=== PATIENT | female | born 1995 | race Caucasian/White ===

== ENCOUNTER → 2022-06-03 | Outpatient (CLI) | payer SELFPAY ==
[2022-06-03 14:54] LABS: Absolute Lymphocyte Count 2.51 X10^3/uL (0.83-4.51); Absolute Neutrophil Count 6.1 X10^3/uL (2.0-7.7); Basophil# 0.02 X10^3/uL; Basophil% 0.2 % (0-1); Eosinophil# 0.05 X10^3/uL; Eosinophils% 0.5 % (0-5); Hematocrit 35.9 % (37-47); Hemoglobin 12.8 g/dL (12.0-15.0); Lymphocyte # 2.51 X10^3/ul (0.83-4.51); Lymphocyte % 26.9 % (19-41); Mean Corp Hgb Conc 35.7 g/dL (32-36); Mean Corpuscular Hgb 30.5 pg (27.0-32.0); Mean Corpuscular Volume 85.7 fL (81-99); Mean Platelet Vol. 8.8 fl (6.2-12.0); Monocyte# 0.65 X10^3/uL; NRBC Flagged by Analyzer 0 % (0-5); Neutrophil # 6.07 X10^3/uL (2.7-7.7); Neutrophil % 65.1 % (47-70); Platelet Count 296 K/mm3 (150-450); RBC Distribution Width CV 13.7 % (11.6-14.6); RBC Distribution Width SD 42.6 fl (35.1-43.9); Red Blood Count 4.19 M/mm3 (4.2-5.4); White Blood Count 9.3 K/mm3 (4.4-11.0)
[2022-06-03 15:38] LABS: Rubella IgG Reactive (Nonreactive)
[2022-06-11 18:03] LABS: HPV Reflexed? NOT INDICATED
== END | disposition home or self-care (01) ==
LOC: PAVLAB 06-04 07:00 → LABSPEC 06-04 07:00 → PAVLAB 06-04 07:28
PROVIDERS: PCP Physician Assistant; Referring Provider Obstetrics & Gynecology; Visit Provider Obstetrics & Gynecology
DX: Z34.90 Encounter for supervision of normal pregnancy, unspecified, unspecified trimester (principal)
CPT/HCPCS: 36415; 85025; 86762; 86850; 86900; 86901; 87086; 87088; 88175; G0145

== ENCOUNTER → 2022-08-02 | Outpatient (CLI) | payer SELFPAY ==
--- NOTE | 2022-08-02 08:18 | US_ITS ---
STUDY: SECOND AND THIRD TRIMESTER OBSTETRICAL ULTRASOUND REASON FOR EXAM: Female, 27 years old anatomy LMP: 03/10/2022. TECHNIQUE: Transabdominal and Transvaginal TECHNICAL QUALITY: Adequate. PRIOR ULTRASOUND: None. FINDINGS: There is a single intrauterine fetus. The fetus is in a cephalic presentation. There is demonstrated cardiac activity with a heart rate of 138 bpm. There is a normal amniotic fluid volume. The largest amniotic fluid pocket measures 5.4 cm. The amniotic fluid index (ABBIE) is within normal limits. The placenta is posterior and fundal in location and is not low lying. There are Grade 0 placental changes. The cervix measures 4.1 cm in length. The bilateral adnexal regions are normal. BIOMETRY: BPD: 5.04 cm: 21 weeks, 2 days HC: 18.58 cm: 20 weeks, 6 days AC: 17.1 cm: 22 weeks, 1 days FL: 3.42 cm: 20 weeks, 5 days CI: 77% FL/BPD: 68% FL/HC: FL/AC: 20% HC/AC: 1.09 age by current US: 21 weeks, 1 days. JACQUELIN by current US: 12/12/2022. Estimated weight: 428 grams, +/- 64 grams, 83 %. Age by LMP: 20 weeks, 5 days. JACQUELIN by LMP: 12/15/2022. ANATOMY: Gender: Male Cranium: Normal lateral ventricles. Normal choroid plexus. Normal cerebellum. Normal cisterna magna. Normal face, nose and lips. Chest: Normal 4-chamber heart. Abdomen/Pelvis: Normal diaphragm. Normal stomach. Normal abdominal wall. Normal cord insertion. Normal 3 vessel cord. Normal kidneys. Normal bladder. Spine: Normal cervical spine. Normal thoracic spine. Normal lumbar spine. Normal sacrum. Extremities: Normal bilateral upper extremities. Normal bilateral lower extremities. US/OB Anatomy Scan IMPRESSION: Single live uterine gestation with a mean gestational age of 21 weeks and 1 day. Electronically Signed: Chidi Hough MD at 14:41 EST ,
== END | disposition home or self-care (01) ==
LOC: OPUS 08:16
PROVIDERS: PCP Physician Assistant; Referring Provider Obstetrics & Gynecology; Visit Provider Obstetrics & Gynecology
DX: Z87.51 Personal history of pre-term labor (principal); Z3A.21 21 weeks gestation of pregnancy; Z36.9 Encounter for antenatal screening, unspecified; O09.90 Supervision of high risk pregnancy, unspecified, unspecified trimester
CPT/HCPCS: 76805; 76817

== ENCOUNTER → 2022-09-23 | Outpatient (CLI) | payer SELFPAY ==
[2022-09-23 09:54] LABS: Absolute Lymphocyte Count 1.58 X10^3/uL (0.83-4.51); Basophil# 0.03 X10^3/uL; Basophil% 0.3 % (0-1); Eosinophils% 0.9 % (0-5); Hematocrit 33.8 % (37-47); Hemoglobin 11.9 g/dL (12.0-15.0); Lymphocyte # 1.58 X10^3/ul (0.83-4.51); Lymphocyte % 14.8 % (19-41); Mean Corp Hgb Conc 35.2 g/dL (32-36); Mean Corpuscular Hgb 30.7 pg (27.0-32.0); Mean Corpuscular Volume 87.1 fL (81-99); Mean Platelet Vol. 8.9 fl (6.2-12.0); Monocyte# 0.73 X10^3/uL; Monocyte% 6.8 % (0-10); NRBC Flagged by Analyzer 0 % (0-5); Neutrophil # 8.01 X10^3/uL (2.7-7.7); Neutrophil % 74.9 % (47-70); Platelet Count 249 K/mm3 (150-450); RBC Distribution Width CV 13.7 % (11.6-14.6); RBC Distribution Width SD 43.1 fl (35.1-43.9); Red Blood Count 3.88 M/mm3 (4.2-5.4); White Blood Count 10.7 K/mm3 (4.4-11.0)
[2022-09-23 10:12] LABS: Glucose Challenge Gest 1H 50g 119 mg/dL (70-140)
[2022-09-23 10:46] LABS: HIV - WCH Non-Reactive (Nonreactive); Syphilis Antibodies Non-reactive
== END | disposition home or self-care (01) ==
PROVIDERS: PCP Physician Assistant; Referring Provider Obstetrics & Gynecology; Visit Provider Obstetrics & Gynecology
DX: Z34.92 Encounter for supervision of normal pregnancy, unspecified, second trimester (principal); Z3A.20 20 weeks gestation of pregnancy
CPT/HCPCS: 36415; 82950; 85025; 86703; 86780; 86900; 86901

== ENCOUNTER → 2022-11-19 | Outpatient (CLI) | payer OTHER, SELFPAY ==
[2022-11-19 12:21] LABS: Hepatitis B Surface Antigen Non-Reactive (Nonreactive); Hepatitis C Antibody Non-Reactive (Nonreactive)
[2022-11-20 22:06] LABS: Chlamydia By Nucleic Acid AMP Negative (Negative)
[2022-11-21 14:20] LABS: Gonococcus By Nucleic Acid AMP Negative (Negative)
== END | disposition home or self-care (01) ==
PROVIDERS: PCP Physician Assistant; Referring Provider Nurse Practitioner Women's Health; Visit Provider Nurse Practitioner Women's Health
DX: Z34.90 Encounter for supervision of normal pregnancy, unspecified, unspecified trimester (principal)
CPT/HCPCS: 36415; 86803; 87081; 87340; 87491; 87591

== ENCOUNTER 2022-11-30 01:40 | Inpatient (IN) | payer SELFPAY, OTHER ==
[2022-11-30] VITALS (26 sets, daily range): BP systolic 97–125; BP diastolic 52–72; PULSE 67–91; RESP 16–18; TEMP 36.2–37.3; O2SAT 98; BMI 31.0
[2022-11-30 01:38] LABS: ROM Internal Control Test YES-OK TO RESULT pt. (Internal QC); ROM Patient Test POSITIVE (Negative)
[2022-11-30] MEDS: LACTATED RINGERS 500 ML 999 ML IV (01:55)
[2022-11-30 02:00] LABS: Absolute Lymphocyte Count 2.29 X10^3/uL (0.83-4.51); Absolute Neutrophil Count 9.5 X10^3/uL (2.0-7.7); Basophil# 0.08 X10^3/uL; Basophil% 0.6 % (0-1); Eosinophil# 0.12 X10^3/uL; Eosinophils% 0.9 % (0-5); Hematocrit 35.4 % (37-47); Hemoglobin 12.1 g/dL (12.0-15.0); Lymphocyte # 2.29 X10^3/ul (0.83-4.51); Lymphocyte % 17.2 % (19-41); Mean Corp Hgb Conc 34.2 g/dL (32-36); Mean Corpuscular Hgb 30.6 pg (27.0-32.0); Mean Corpuscular Volume 89.6 fL (81-99); Mean Platelet Vol. 9.3 fl (6.2-12.0); Monocyte# 0.98 X10^3/uL; Monocyte% 7.4 % (0-10); NRBC Flagged by Analyzer 0 % (0-5); Neutrophil # 9.45 X10^3/uL (2.7-7.7); Neutrophil % 71.1 % (47-70); Platelet Count 247 K/mm3 (150-450); RBC Distribution Width CV 13.2 % (11.6-14.6); Red Blood Count 3.95 M/mm3 (4.2-5.4); White Blood Count 13.3 K/mm3 (4.4-11.0)
[2022-11-30] MEDS: Lactated Ringers 1,000 ML 50 ML IV (02:27)
[2022-11-30 03:46] LABS: Syphilis Antibodies Non-reactive
--- NOTE | 2022-11-30 04:34 | HP.PCM.OB_ITS ---
HPI - General General Date of Admission: 11/30/22 HPI Narrative HARDEEP HOYOS, is a 27 y/i @ 37 weeks 6 days who presents to L&D with rupture of membranes at 11:30 pm on 11/29/22. She has a history of section with her last baby due to a breech presentation. Her first was a 34 week vaginal delivery at [place] for labor. 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 Her chance of a successful vaginal delivery based on the calculator is 78.8% of success. A consent form was signed after discussing the risks vs benefits of vs elective repeat section. Maternal Data Information JACQUELIN Calculator Estimated Delivery Date Method Current WG Current Estimate 12/15/22 LMP (Certain) 37w 6d PFSH [facility] Medical History (Updated 11/30/22 @ 01:56 by Ludy Paz) Family history of recurrent miscarriage Family history of stillbirth History of blood transfusion History of pre-term labor History of premature rupture of membranes (PPROM) depression Home Medications multivitamin no.47-iron fum 27 mg-folate no.1 1 mg-dha 300 mg capsule (PNV-DHA) 1 cap PO DAILY 05/23/22 [History Last Taken 11/29/22 17:00] Allergy/AdvReac Type Severity Reaction Status Date / Time No Known Allergies Allergy Verified 11/30/22 01:27 Family History Grandmother Breast cancer Aunt Breast cancer Ovarian cancer Surgical History (Updated 11/30/22 @ 01:56 by Ludy Paz) Hx of LASIK Previous section Social History adopted: No household members: spouse and children number of children: 2 current occupational status: unemployed pets and animals: No history of recent travel: No sexually active: Yes Smoking Status: Never smoker alcohol intake: never substance use type: does not use well-balanced diet: daily or most days caffeine: No eating out: rarely or never during the past year weight has: remained stable what type of physical activity do you participate in: none niyah/anglican: Protestant seatbelt use: sometimes do you feel safe at home: Yes additional social history: [place]- [place] History 6 Elective abortions Hx Para 2 Spontaneous abortions 3 Hx # Term Pregnancies Ectopic pregnancies Hx # Pregnancies Multiple births # of living children 2 Past Pregnancies Del. Date Name GA/Weeks Outcome Route Bth Weight Gen Labor Lgth Anesthesia Del Locatn Provider FOB 07/18/17 miscarriage at 8 weeks 10/16/17 miscarriage 7 weeks 04/08/19 Gustavo 34 live - 5#12oz Male 13 hours epidural Matt Jaylyn Cindy 10/13/20 Dania 39 live - full term 7#12oz Female spinal [place] Mikael White 12/12/21 miscarriage 5 weeks Delivery Date: 04/08/19 Last Updated by: Celsa Domínguez MD PPROM, pitocin to keep process going Delivery Date: 10/13/20 Last Updated by: Darlene Correia breech Visit Details Expected Delivery Route/Plan TOLAC patient counseled regarding risks/benefits of trial of labor versus repeat . ACOG/uptodate education given to patient. [] % likelihood of success per calculator TOLAC consent form signed: [] Plans Covid status: [] Flu vaccine: [] Tdap vaccine: discussed and declines Rhogam: na LARC form signed: completed Problem list reviewed and updated with the most current plan of care details and appropriate orders placed. Relevant counseling for the gestational age provided. Continue routine care and follow up unless otherwise noted in visit notes/problem list details OB Flowsheet Initial Weight: Not Recorded Date -?-?-?-?-?-?-?-?-?-?-?-?- EGA Weight BP Urine Prot -?-?-?-?-?-?-?-?-?-?-?-?- Glucose FHR FuHt Pres Dilation -?-?-?-?-?-?-?-?-?-?-?-?- Effaced St Visit Note 06/03/22 -?-?-?-?-?-?-?-?-?-?-?-?- 12w 1d 157 lb 114/72 -?-?-?-?-?-?-?-?-?-?-?-?- 170 -?-?-?-?-?-?-?-?-?-?-?-?- SM- CRL 6 cm con s with LMP 08/02/22 -?-?-?-?-?-?-?-?-?-?-?-?- 20w 5d 167 lb 102/62 Negative -?-?-?-?-?-?-?-?-?-?-?-?- Negative 140 -?-?-?-?-?-?-?-?-?-?-?-?- SM- no vb crampi ng, nex tvisit with Hardeep in 4 weeks and fu with us in 8 weeks 09/23/22 -?-?-?-?-?-?-?-?-?-?-?-?- 28w 1d 178 lb 6 oz 109/69 Nega tive -?-?-?-?-?-?-?-?-?-?-?-?- Negative 135 28 -?-?-?-?-?-?-?-?-?-?-?-?- LC- no vb/ctx/lo f. good fm. normal 28 week labs. larc signed. will see hardeep in 2 weeks and us in 4 weeks. 10/23/22 -?-?-?-?-?-?-?-?-?-?-?-?- 32w 3d 184 lb 6 oz 99/66 Nega tive -?-?-?-?-?-?-?-?-?-?-?-?- Negative 125 32 Cephalic 0 -?-?-?-?-?-?-?-?-?-?-?-?- JV- pt complains of cramping but thinks that she could be over doing it at home. She denies lof, vaginal bleeding, or dec fm. cx closed today 11/19/22 -?-?-?-?-?-?-?-?-?-?-?-?- 36w 2d 189 lb 6 oz 108/62 Nega tive -?-?-?-?-?-?-?-?-?-?-?-?- Negative 131 36 Cephalic 0 -?-?-?-?-?-?-?-?-?-?-?-?- MH-no Vb,lof. Ir reg CTX. Good FM. GBs, GCC NST FHR Rate Baby A Variability:: Moderate Accelerations:: 15 x 15 Decelerations:: None FHR Category:: Category I Uterine Activity:: contractions q 3-5 minutes ROS Constitutional Constitutional: Denies change in weight, fatigue, fever(s), headache(s), poor appetite or weakness Eyes Eyes: Denies blurry vision, change in vision, seeing flashes or spots in vision ENT HEENT: Denies dizziness, headache(s), loss taste/smell or sore throat Cardiovascular Cardiovascular: Denies chest pain, dizziness, dyspnea, irregular heart rhythm, leg edema, palpitations, rapid heart rate or vomiting Respiratory/Chest Respiratory/Chest: Denies chest tightness, cough, dyspnea or breast pain Gastrointestinal Gastrointestinal: Denies abdominal pain, anorexia, constipation, cramping, diarrhea, hemorrhoids, vomiting or weight changes Genitourinary Genitourinary: Denies dysuria, flank pain, genital lesions, genital pain, urinary frequency or urinary urgency Musculoskeletal Musculoskeletal: Denies back pain, difficulty walking, joint pain, limited range of motion, muscle cramps or numbness Integumentary Integumentary: Denies lesions or unusual bruising Neurologic Neurologic: Denies abnormal movements, abnormal speech, dizziness, numbness, seizure-like activity or syncope Psychiatric Psychiatric: Denies anxiety, behavioral changes, change in appetite, change in libido, cognitive impairment, confusion, depression, difficulty concentrating, h allucinations or suicidal thoughts Endocrine Endocrinology: Denies excessive sweating, polydipsia or polyuria Hematologic/Lymphatic Hematologic/Lymphatic: Denies easy bleeding, easy bruising or lymphadenopathy Allergic/Immunologic Allergic/Immunologic: Denies itchy eyes, lip swelling, seasonal rhinorrhea, rhinitis, throat swelling, tongue swelling, eczemia, wheezing or asthma Vital Signs Vital Signs Vital Signs: 11/30/22 01:13 11/30/22 01:13 11/30/22 01:12 Temperature Temperature Source Pulse Rate 83 Blood Pressure 118/66 BP Systolic 118 BP Diastolic 66 Pulse Ox 98 11/30/22 01:12 11/30/22 01:12 11/30/22 02:37 Temperature 98.1 F Temperature Source Temporal Temporal Pulse Rate Blood Pressure BP Systolic BP Diastolic Pulse Ox 11/30/22 02:37 11/30/22 02:37 11/30/22 02:37 Temperature 98.3 F Temperature Source Pulse Rate 82 Blood Pressure 97/55 L BP Systolic 97 BP Diastolic 55 Pulse Ox 11/30/22 04:24 11/30/22 04:24 Temperature Temperature Source Pulse Rate 85 Blood Pressure 110/62 BP Systolic 110 BP Diastolic 62 Pulse Ox Weight Weight: 192 lb 3.889 oz Body Mass Index (BMI) 31.0 Physical Exam Const alert, oriented x3, no apparent distress and healthy appearing General Appearance: cooperative; Negative for anxious HEENT normocephalic Face and Sinus: normal facial exam Eyes EOMs intact bilaterally and no scleral icterus General Eye: normal appearance of both eyes Neck full ROM and supple Lymph Lymphatic: no lymphadenopathy noted Chest Chest: abnormal inspection of the chest Resp normal respiratory effort Effort and Inspection: able to speak in complete sentences Cardio regular rate GI soft to palpation and non-tender Inspection: gravid Palpation: soft; Negative for tender external exam normal Amniotic Fluid: ROM+plus Back/Spine no CVA tenderness Extremity normal to inspection, full ROM and no clubbing, cyanosis or edema General Extremity: Negative for calf tenderness or edema Skin Lesions: no lesions Rashes: no rashes Psych mental status grossly normal Labs Labs Labs: Blood Type O POSITIVE Antibody Screen NEGATIVE Hct 35.4 % (37-47) L Hgb 12.1 g/dL (12.0-15.0) Obstetrics US Syphilis Total Ab Non-reactive Rubella IgG Antibody Reactive (Nonreactive) Hep Bs Antigen Non-Reactive (Nonreactive) Chlamydia DNA (CHUCKIE) Negative (Negative) Neisseria gonorrhoeae DNA (CHUCKIE) Negative (Negative) HIV 1&2 Antibody Non-Reactive (Nonreactive) Glucose 1 Hr 50 gm 119 mg/dL (70-140) Assessment & Plan (1) History of miscarriage, currently : COMMENT: 3 miscarriages. 2017 @ 8 wks, 2018 @ 7 wks, 2020 @ 5 wks (2) Hx of section: COMMENT: dtr was breech(2020). cocare with [facility]eep [facility] . (3) : QUALIFIERS: Weeks of gestation: 32 weeks Qualified Code(s): Z3A.32 - 32 weeks gestation of COMMENT: Neg GBS. anatomy nl, discussed NIPT & Carrier testing (4) Supervision of high risk , antepartum: COMMENT: PRR(GCC, hep B/C pending), JACQUELIN 12/15/22, Dania Johnston Cindy (5) Hx of maternal blood transfusion, currently : COMMENT: with c section 2020 (6) History of delivery: COMMENT: discussed CL screening. term delivery last . PLAN: Plan Patient presents IAL, plan expectant management for , pitocin PRN if needed. Pain management: none . GBS negative . Management of any complications: prior section with a chance of successful vaginal being 75.8%. consent signed and patient aware of 1% chance of uterine rupture that could result in demise in the worst case scenario. currently she has made minimal change since arrival. She presented at 160/-2 and is now 1.5/80/-2. She is declining pitocin at this time. Will give her 2 more hours and recheck for cervical change I have reviewed the [facility] and made any clinically relevant updates.
[2022-11-30] MEDS: Ondansetron 4 MG/2 ML Vial IV ×2 (10:03→14:10)
[2022-11-30] MEDS: 0.9% Saline Lock 10 ML Syringe IV ×2 (10:03→14:10)
--- NOTE | 2022-11-30 10:05 | PCM.PN.BLA ---
Progress Note pt is in hands and knees on the floor. She is breathing through contractions. She was last examined at 6:20 and noted to have changed her cervix from 1 to 3 cm. current tracing: FHT: Moderate variability reactive no decelerations category I tracing [place]: irregular Contractions, not picking up all contractions as patient is on portable monitor cx: /-1 reviewed tracing abnormalities since last note: no changes, cat1 A/P: tolac - progressing well without intervention continue monitoring. no need for pitocin at this time. ' patient declines epidural placement or pain medication.
[2022-11-30] MEDS: Oxytocin 15 Units/NS 250ml 15 UNITS/250 ML IV.SOLN 2 UNITS IV (12:32)
--- NOTE | 2022-11-30 12:45 | PN_ITS ---
Progress Note pt is breathing through contractions still but admits that she thinks they are spacing out. She is ready to start pitocin now. current tracing: FHT: Moderate variability reactive no decelerations category I tracing [place]: q 5 min Contractions cx: 4.5/80/-1 reviewed tracing abnormalities since last note: no changes A/P: TOLAC -start pitocin now.
--- NOTE | 2022-11-30 14:51 | EX.PCM.OBRPT ---
Assessment & Plan (1) History of miscarriage, currently : COMMENT: 3 miscarriages. 2017 @ 8 wks, 2018 @ 7 wks, 2020 @ 5 wks (2) Hx of section: COMMENT: dtr was breech(2020). [facility]are with [facility] . (3) Supervision of high risk , antepartum: COMMENT: PRR(GCC, hep B/C pending), JACQUELIN 12/15/22, Dania Johnston Cindy (4) : QUALIFIERS: Weeks of gestation: 32 weeks Qualified Code(s): Z3A.32 - 32 weeks gestation of COMMENT: Neg GBS. anatomy nl, discussed NIPT & Carrier testing (5) Hx of maternal blood transfusion, currently : COMMENT: with c section 2020 (6) History of delivery: COMMENT: discussed CL screening. term delivery last . Maternal Data Information JACQUELIN Calculator Estimated Delivery Date Method Current WG Current Estimate 12/15/22 LMP (Certain) 37w 6d Final JACQUELIN: 12/15/22 Gestational age: 37 weeks 6 days Vaginal Delivery Operative Information Date of Procedure: 11/30/22 Pre-Operative Diagnosis: @ 37 weeks 6 days, history of prior section, desires TOLAC Post-Operative Diagnosis: @ 37 weeks 6 days, history of prior section, desires TOLAC Type of Anesthesia: None Estimated Blood Loss: 50ccc Findings Description of Procedure: Patient began pushing and delivered the head in the YESI presentation. The head was delivered atraumatically and a loose nuchal cord ?1 was identified and easily reduced over the 's head. The anterior and posterior shoulders delivered without complication followed by the rest of the infant and the was placed on the maternal abdomen. Delayed cord clamping was employed for approximately 60 seconds. Cord was clamped and cut and gentle traction was applied to the cord and the placenta delivered spontaneously immediately following it was noted to be intact with three-vessel cord. The perineum and vagina were inspected and noted to have a small 1st degree laceration, repaired with a 3-0 vicryl rapide. EBL was 50cc. Patient and tolerated delivery well. Presentation: Vertex Amniotic Membrane Rupture Type: Spontaneous Amniotic Fluid Description: Clear Placental Delivery Description: Spontaneous Placenta Disposition: [facility] Cord Vessel Description: 3 Vessels Cord Entanglement: Around neck x 1, loose A Gender: Male (1 minute): 8 (5 minute): 9 Delayed Cord Clamping: Yes Post Vaginal Delivery Medications Given After Delivery: IV Pitocin Episiotomy Description: None Laceration: 1st degree Complication Complications: None Multi Select Codes Urinary/Genital Urinary/Genital CPT Codes: 90866 Vaginal Delivery [facility]
[2022-11-30] MEDS: Oxytocin 15 Units/NS 250ml 15 UNITS/250 ML IV.SOLN 83 UNITS IV (15:10)
[2022-11-30] MEDS: Lidocaine 1% (20 ml mdv) 20 ML Vial INFILT (15:20)
[2022-11-30] MEDS: Naproxen 500 MG Tablet PO (17:59)
[2022-12-01] VITALS (9 sets, daily range): BP systolic 103–116; BP diastolic 51–59; PULSE 67–78; RESP 15–16; TEMP 36.2–37.2; O2SAT 97–98
[2022-12-01] MEDS: Naproxen 500 MG Tablet PO (07:57)
--- NOTE | 2022-12-01 09:47 | PCM.PN.OB ---
Subjective Subjective Patient doing well without complaints. Tolerating PO. Ambulating and voiding without difficulty. Feeding well. Denies chest pain, shortness of breath, calf pain/swelling, fevers, chills, lightheadedness. Patient desires discharge to home Objective Data Objective Data Vital Signs: Vital Signs Temp Pulse Resp BP Pulse Ox O2 Del Method 98.9 F 74 15 116/59 L 98 Room Air 12/01/22 07:58 12/01/22 07:58 12/01/22 07:58 12/01/22 07:58 12/01/22 07:58 12/01/22 07:58 Oxygen Delivery Method Room Air Weight: 192 lb 3.889 oz Body Mass Index (BMI) 31.0 Intake & Output: Intake and Output for Last 24 Hours 11/29/22 11/30/22 12/01/22 23:59 23:59 23:59 Intake Total 1894.13 / 1894.13 Output Total 2250 / 2250 Balance -355.87 / -355.87 Lab / Micro Data Result Diagrams: 11/30/22 01:45 ROS Constitutional Constitutional: Denies chills, fatigue, fever(s), poor appetite or weakness Eyes Eyes: Denies blurry vision, change in vision, seeing flashes or spots in vision ENT HEENT: Denies dizziness, headache(s), loss taste/smell or sore throat Cardiovascular Cardiovascular: Denies chest pain, dizziness, dyspnea, irregular heart rhythm, palpitations or rapid heart rate Respiratory/Chest Respiratory/Chest: Denies chest tightness, cough, dyspnea or breast pain Gastrointestinal Gastrointestinal: Denies abdominal pain, constipation or vomiting Genitourinary Genitourinary: Denies dysuria or flank pain Musculoskeletal Musculoskeletal: Denies difficulty walking, joint pain, limited range of motion or numbness Neurologic Neurologic: Denies abnormal movements, abnormal speech, dizziness, numbness, seizure-like activity or syncope Psychiatric Psychiatric: Denies anxiety, behavioral changes, change in appetite, confusion, depression or suicidal thoughts Physical Exam Const alert, oriented x3 and no apparent distress General Appearance: cooperative and comfortable Resp normal respiratory effort Cardio regular rate GI normal to inspection, nondistended, normoactive bowel sounds GI Narrative: uterus is firm below umbilicus Palpation: soft Back/Spine no CVA tenderness and thoraco-lumbar ROM normal Extremity normal to inspection, no clubbing, cyanosis or edema, no calf tenderness and no pedal edema Psych mental status grossly normal, thought process normal, cooperative, affect normal, speech normal, activity/motor behavior normal, denies homicidal ideation and denies suicidal ideation Assessment & Plan (1) , delivered: PLAN: s/p PPD # 1 1. routine post delivery care 2. breast feeding- support given 3. rh positive 4. rubella immune 5. dc to home later today
--- NOTE | 2022-12-01 09:48 | DCINST_ITS ---
Discharge Instructions Diet Discharge Diet: No restrictions Activity Discharge Activity: Return to Normal Activity, May Not Drive (while taking narcotic pain medications.) and May Shower May resume sexual activity in: 4-6 weeks Dressing / Incision Call your doctor if your incision/area has: Continuous Slow Oozing, Sudden Increased Bleeding, Increased Pain/ Swelling, Increased Redness and Foul Smelling Discharge Follow Up Care Please Follow Up With: Love Goodman, When: Call [phone] to make an appointment with your doctor in 6 weeks. If you had elevated blood pressure or 4th degree laceration, you will need to be seen in 2 weeks. Test Results: Test results from this visit will be discussed in further detail at your follow- up appointment, if applicable. Discharge Plan Admission Admit Date/Time: 11/30/22 01:40 Primary Reason for Your Visit: vaginal delivery after section Attending Provider: Love Goodman Primary Care Provider: Antonio Martins Discharge Orders/Prescriptions Prescriptions: No Action PNV-DHA 27 mg iron-1 mg -300 mg capsule 1 cap PO DAILY Referrals / Follow Up: Antonio Martins PA-C [Primary Care Provider] - Disposition Disposition (needs filled in before D/C Order can be placed): Home, Self Care
[2022-12-01] MEDS: Acetaminophen 500 MG Tablet 1000 MG PO (14:53)
== END 2022-12-01 16:35 | disposition home or self-care (01) | DRG 805 ==
LOC: WPOUT 01:50 → WP 01:50
PROVIDERS: Admitting Provider Obstetrics & Gynecology; PCP Physician Assistant; Visit Provider Obstetrics & Gynecology
DX: O32.1XX0 Maternal care for breech presentation, not applicable or unspecified (principal); Z37.0 Single live birth; O60.14X0 Preterm labor third trimester with preterm delivery third trimester, not applicable or unspecified; B19.10 Unspecified viral hepatitis B without hepatic coma; O98.42 Viral hepatitis complicating childbirth; O26.23 Pregnancy care for patient with recurrent pregnancy loss, third trimester; O34.219 Maternal care for unspecified type scar from previous cesarean delivery; O70.0 First degree perineal laceration during delivery; Z3A.37 37 weeks gestation of pregnancy; O69.81X0 Labor and delivery complicated by cord around neck, without compression, not applicable or unspecified; Z87.51 Personal history of pre-term labor
CPT/HCPCS: 59025; 59050; 84112; 85025; 86780; 86850; 86900; 86901; 99221; J7120; A4216; G0378; J2405

== ENCOUNTER → 2024-02-03 | Outpatient (CLI) | payer SELFPAY, OTHER ==
[2024-02-03 10:57] LABS: Absolute Neutrophil Count 4.7 X10^3/uL (2.0-7.7); Basophil# 0.02 X10^3/uL; Basophil% 0.3 % (0-1); Eosinophil# 0.06 X10^3/uL; Eosinophils% 0.8 % (0-5); Hematocrit 35.9 % (37-47); Hemoglobin 12.1 g/dL (12.0-15.0); Mean Corp Hgb Conc 33.7 g/dL (32-36); Mean Corpuscular Hgb 29.9 pg (27.0-32.0); Mean Corpuscular Volume 88.6 fL (81-99); Mean Platelet Vol. 9.2 fl (6.2-12.0); Monocyte# 0.54 X10^3/uL; Monocyte% 7.5 % (0-10); NRBC Flagged by Analyzer 0 % (0-5); Neutrophil # 4.74 X10^3/uL (2.7-7.7); Platelet Count 280 K/mm3 (150-450); RBC Distribution Width CV 13.3 % (11.6-14.6); RBC Distribution Width SD 43.4 fl (35.1-43.9); Red Blood Count 4.05 M/mm3 (4.2-5.4); White Blood Count 7.2 K/mm3 (4.4-11.0)
[2024-02-03 11:54] LABS: HIV - WCH Non-Reactive (Nonreactive); Hepatitis B Surface Antigen Non-Reactive (Nonreactive); Hepatitis C Antibody Non-Reactive (Nonreactive); Rubella IgG Reactive (Nonreactive); Syphilis Antibodies Non-reactive
[2024-02-05 06:09] LABS: Chlamydia By Nucleic Acid AMP Negative (Negative); Gonococcus By Nucleic Acid AMP Negative (Negative)
== END | disposition home or self-care (01) ==
PROVIDERS: PCP Physician Assistant; Referring Provider Advanced Practice Midwife; Visit Provider Advanced Practice Midwife
DX: O09.90 Supervision of high risk pregnancy, unspecified, unspecified trimester (principal); Z3A.00 Weeks of gestation of pregnancy not specified
CPT/HCPCS: 36415; 85025; 86703; 86762; 86780; 86803; 86850; 86900; 86901; 87086; 87340; 87491; 87591

== ENCOUNTER → 2024-04-08 | Outpatient (CLI) | payer SELFPAY ==
--- NOTE | 2024-04-08 14:47 | US_ITS ---
STUDY: SECOND AND THIRD TRIMESTER OBSTETRICAL ULTRASOUND REASON FOR EXAM: Female, 29 years old anatomy LMP: TECHNIQUE: Transabdominal and Transvaginal TECHNICAL QUALITY: Adequate. PRIOR ULTRASOUND: None. FINDINGS: There is a single intrauterine fetus. The fetus is in a cephalic presentation. There is demonstrated cardiac activity with a heart rate of 137 bpm. There is a normal amniotic fluid volume. The largest amniotic fluid pocket measures 4.2 cm. The amniotic fluid index (ABBIE) is within normal limits. The placenta is posterior in location and is not low lying. There are Grade 0 placental changes. The cervix measures 4.2 cm in length. The bilateral adnexal regions are normal. BIOMETRY: BPD: 5.04 cm: 21 weeks, 2 days HC: 18.61 cm: 21 weeks, 0 days AC: 16.28 cm: 21 weeks, 2 days FL: 2.99 cm: 19 weeks, 2 days CI: 78% FL/BPD: 59% FL/HC: 16% FL/AC: 18.4% HC/AC: 1.14 age by current US: 20 weeks, 3 days. JACQUELIN by current US: August 23, 2024. Estimated weight: 361 grams, +/- 54 grams, 68 %. Age by LMP: 20 weeks, 1 days. JACQUELIN by LMP: August 25, 2024. ANATOMY: Gender: Male Cranium: Normal lateral ventricles. Normal choroid plexus. Normal cerebellum. Normal cisterna magna. Normal face, nose and lips. Chest: Normal 4-chamber heart. Abdomen/Pelvis: Normal diaphragm. Normal stomach. Normal abdominal wall. Eccentric insertion of the umbilical cord. It is at 2 cm from the placental edge. Normal 3 vessel cord. Normal kidneys. Normal bladder. Spine: Normal cervical spine. Normal thoracic spine. Normal lumbar spine. Normal sacrum. Extremities: Normal bilateral upper extremities. Normal bilateral lower extremities. US/OB Anatomy w/ Transvaginal IMPRESSION: Single live ventricular and gestation with a mean gestational age of 20 weeks and 3 days. Electronically Signed: Chidi Hough MD at 7:59 EDT ,
== END | disposition home or self-care (01) ==
PROVIDERS: PCP Physician Assistant; Referring Provider Obstetrics & Gynecology; Visit Provider Obstetrics & Gynecology
DX: O09.90 Supervision of high risk pregnancy, unspecified, unspecified trimester (principal); Z3A.00 Weeks of gestation of pregnancy not specified
CPT/HCPCS: 76805; 76817

== ENCOUNTER → 2024-06-10 | Outpatient (CLI) | payer OTHER, SELFPAY ==
[2024-06-10 10:14] LABS: Absolute Lymphocyte Count 1.64 X10^3/uL (0.83-4.51); Absolute Neutrophil Count 8.8 X10^3/uL (2.0-7.7); Basophil# 0.04 X10^3/uL; Basophil% 0.3 % (0-1); Eosinophil# 0.09 X10^3/uL; Eosinophils% 0.8 % (0-5); Hematocrit 32.9 % (37-47); Hemoglobin 11.3 g/dL (12.0-15.0); Lymphocyte # 1.64 X10^3/ul (0.83-4.51); Mean Corp Hgb Conc 34.3 g/dL (32-36); Mean Corpuscular Hgb 30.4 pg (27.0-32.0); Mean Corpuscular Volume 88.4 fL (81-99); Mean Platelet Vol. 8.9 fl (6.2-12.0); Monocyte# 0.78 X10^3/uL; Monocyte% 6.6 % (0-10); NRBC Flagged by Analyzer 0 % (0-5); Neutrophil # 8.84 X10^3/uL (2.7-7.7); Neutrophil % 75.4 % (47-70); Platelet Count 228 K/mm3 (150-450); RBC Distribution Width CV 13.6 % (11.6-14.6); Red Blood Count 3.72 M/mm3 (4.2-5.4); White Blood Count 11.7 K/mm3 (4.4-11.0)
[2024-06-10 10:52] LABS: Glucose Challenge Gest 1H 50g 102 mg/dL (70-140)
[2024-06-10 11:23] LABS: HIV - WCH Non-Reactive (Nonreactive); Syphilis Antibodies Non-reactive
== END | disposition home or self-care (01) ==
PROVIDERS: PCP Physician Assistant; Referring Provider Obstetrics & Gynecology; Visit Provider Obstetrics & Gynecology
DX: O09.90 Supervision of high risk pregnancy, unspecified, unspecified trimester (principal); Z3A.00 Weeks of gestation of pregnancy not specified; Z13.1 Encounter for screening for diabetes mellitus
CPT/HCPCS: 36415; 82950; 85025; 86703; 86780

== ENCOUNTER → 2024-08-05 | Outpatient (CLI) | payer OTHER, SELFPAY | END | disposition home or self-care (01) | LOC: LABSPEC 11:27 | PROVIDERS: PCP Physician Assistant; Referring Provider Advanced Practice Midwife; Visit Provider Advanced Practice Midwife | DX: O09.93 Supervision of high risk pregnancy, unspecified, third trimester (principal); Z3A.00 Weeks of gestation of pregnancy not specified | CPT/HCPCS: 87081 ==

== ENCOUNTER 2024-08-16 08:55 | Inpatient (IN) | payer SELFPAY, OTHER ==
[2024-08-16] VITALS (22 sets, daily range): BP systolic 107–121; BP diastolic 54–79; PULSE 62–88; RESP 16; TEMP 36.1–37.1; O2SAT 94–99; BMI 31.4
[2024-08-16] MEDS: Lactated Ringers 1,000 ML 50 ML IV (09:10)
[2024-08-16 09:25] LABS: Absolute Lymphocyte Count 1.54 X10^3/uL (0.83-4.51); Absolute Neutrophil Count 12.9 X10^3/uL (2.0-7.7); Basophil# 0.03 X10^3/uL; Basophil% 0.2 % (0-1); Eosinophil# 0.03 X10^3/uL; Eosinophils% 0.2 % (0-5); Hematocrit 37.8 % (37-47); Lymphocyte # 1.54 X10^3/ul (0.83-4.51); Lymphocyte % 9.9 % (19-41); Mean Corp Hgb Conc 34.4 g/dL (32-36); Mean Corpuscular Hgb 29.5 pg (27.0-32.0); Mean Corpuscular Volume 85.7 fL (81-99); Mean Platelet Vol. 9.2 fl (6.2-12.0); Monocyte# 0.86 X10^3/uL; Monocyte% 5.5 % (0-10); NRBC Flagged by Analyzer 0 % (0-5); Neutrophil # 12.92 X10^3/uL (2.7-7.7); Neutrophil % 82.7 % (47-70); Platelet Count 243 K/mm3 (150-450); RBC Distribution Width SD 43.2 fl (35.1-43.9); Red Blood Count 4.41 M/mm3 (4.2-5.4); White Blood Count 15.6 K/mm3 (4.4-11.0)
[2024-08-16] MEDS: Ondansetron 4 MG/2 ML Vial IV (09:27)
[2024-08-16] MEDS: Oxytocin 15 Units/NS 250ml 15 UNITS/250 ML IV.SOLN 334 UNITS IV (09:58)
[2024-08-16] MEDS: Oxytocin 10 UNITS/ML Vial IM (09:58)
--- NOTE | 2024-08-16 10:02 | HP.PCM.OB_ITS ---
HPI - General General Date of Admission: 08/16/24 HPI Narrative HARDEEP HOYOS, is a 29 y/o @ 38 weeks 5 days F who presents to L&D in active labor. She has a history of a vaginal , followed by a section, followed by a successful vaginal . She requests TOLAC. Maternal Data Information JACQUELIN Calculator Estimated Delivery Date Method Current WG Current Estimate 08/25/24 LMP (Certain) 38w 5d PFSH PFSH Medical History depression History of blood transfusion History of premature rupture of membranes (PPROM) History of pre-term labor depression Family history of stillbirth Family history of recurrent miscarriage Home Medications ?Medication ?Instructions ?Recorded ?Last Taken ?Type multivitamin no.47-iron fum 27 1 cap PO DAILY 05/23/22 11/29/22 17:00 History mg-folate no.1 1 mg-dha 300 mg capsule (PNV-DHA) sertraline 50 mg tablet (Zoloft) 50 mg PO DAILY #90 tabs 02/03/24 08/15/24 21:00 Rx 50 mg Allergy/AdvReac Type Severity Reaction Status Date / Time No Known Allergies Allergy Verified 08/12/24 09:31 Family History Grandmother Breast cancer Aunt Breast cancer Ovarian cancer Mother Breast cancer, Onset Age: 63 Family history of recurrent miscarriage Family history of stillbirth x1 Daughter Hip dysplasia, congenital Sister Family history of recurrent miscarriage Surgical History Previous section Hx of RICA Social History adopted: No household members: spouse and children number of children: 3 current occupational status: unemployed current occupation: [employer] pets and animals: No history of recent travel: Yes ([place], [place]) out of state: Yes out of country: No sexually active: Yes Smoking Status: Never smoker alcohol intake: never substance use type: does not use well-balanced diet: daily or most days caffeine: No eating out: rarely or never during the past year weight has: remained stable what type of physical activity do you participate in: none niyah/scientologist: Shinto seatbelt use: sometimes do you feel safe at home: Yes additional social history: Cindy- Sami History 7 Elective abortions Hx Para 3 Spontaneous abortions 3 Hx # Term Pregnancies Ectopic pregnancies Hx # Pregnancies Multiple births # of living children 3 Past Pregnancies Del. Date Name GA/Weeks Outcome Route Bth Weight Infant Gen Labor Lgth Anesthesia Del Locatn Provider FOB 07/18/17 miscarriage at 8 weeks 10/16/17 miscarriage 7 weeks 04/08/19 Gustavo 34 live - 5#12oz Male 13 hours epidural Matt Jaylyn Cindy 10/13/20 Dania 39 live - full term 7#12oz Female spinal [place] Mikael White 12/12/21 miscarriage 5 weeks 11/30/22 Sree 38 live - full term 9#6oz Male [facility] Dr. Goodman Delivery Date: 04/08/19 Last Updated by: Celsa Domínguez MD PPROM, pitocin to keep process going Delivery Date: 10/13/20 Last Updated by: Darlene Correia breech Visit Details Expected Delivery Route/Plan TOLAC patient counseled regarding risks/benefits of trial of labor versus repeat . ACOG/uptodate education given to patient. [] % likelihood of success per calculator TOLAC consent form signed: 07/09 Plans Covid status: [] Flu vaccine: declines Tdap vaccine: given Rhogam: NA LARC form signed: [] Problem list reviewed and updated with the most current plan of care details and appropriate orders placed. Relevant counseling for the gestational age provided. Continue routine care and follow up unless otherwise noted in visit notes/problem list details OB Flowsheet Initial Weight: Not Recorded Date -?-?-?-?-?-?-?-?-?-?-?-?- EGA Weight BP Urine Prot -?-?-?-?-?-?-?-?-?-?-?-?- Glucose FHR FuHt Pres Dilation -?-?-?-?-?-?-?-?-?-?-?-?- Effaced St Visit Note 02/03/24 -?-?-?-?-?-?-?-?-?-?-?-?- 10w 6d 165 lb 101/63 -?-?-?-?-?-?-?-?-?-?-?-?- 162 -?-?-?-?-?-?-?-?-?-?-?-?- KW- CRL cons wit h dates. Declines NIPT. would like to start Zoloft 50mg for increased depression sx since becoming . 03/05/24 -?-?-?-?-?-?-?-?-?--?-?-?- 15w 2d 168 lb 8 oz 118/68 Nega tive -?-?-?-?-?-?-?-?-?-?-?-?- Negative 160 -?-?-?-?-?-?-?-?-?-?-?-?- JV- no lof, vagi nal bleeding, or cramping. no complaints. anaotmy scan ordered 04/08/24 -?-?-?-?-?-?-?-?-?-?-?-?- 20w 1d 173 lb 4 oz 104/67 Nega tive -?-?-?-?-?-?-?-?-?-?-?-?- Negative 140 20 -?-?-?-?-?-?-?-?-?-?-?-?- kw- no vb/crampi ng. good fm. has US this afternoon. thinking of using diaphragm for contraception. 05/06/24 -?-?-?--?-?-?-?-?-?-?-?-?- 24w 1d 176 lb 4 oz 100/63 Nega tive -?-?-?-?-?-?-?-?-?-?-?-?- Negative 145 24 -?-?-?-?-?-?-?-?-?-?-?-?- JV- normal anato my scan. pt did not get a call and was somewhat upset. declines flu shot. 06/10/24 -?-?-?-?-?-?-?-?-?-?-?-?- 29w 1d 184 lb 114/73 Negative -?-?-?-?-?-?-?-?-?-?-?-?- Negative 147 28 -?-?-?-?-?-?-?-?-?-?-?-?- MH-No VB, LOF. G ood FM. tdap. 06/24/24 -?-?-?-?-?-?-?-?-?-?-?-?- 31w 1d 188 lb Negative -?-?-?-?-?-?-?-?-?-?-?-?- Negative 140 32 -?-?-?-?-?-?-?-?-?-?-?-?- KW- no vb/lof/ct x. good fm. larc today 07/09/24 -?-?-?-?-?-?-?-?-?-?-?-?- 33w 2d 189 lb 113/74 Negative -?-?-?-?-?-?-?-?-?-?-?-?- Negative 145 33 -?-?-?-?-?-?-?-?-?-?-?-?- SM- no vb lof go od fm irregular ctxlac form signed 07/27/24 -?-?-?-?-?-?-?-?-?-?-?-?- 35w 6d 195 lb 2 oz 110/70 Nega tive -?-?-?-?-?-?-?-?-?-?-?-?- Negative 152 36 -?-?-?-?-?-?-?-?-?--?-?-?- -NO VB, LOF. G ood FM. Some irreg CTX 08/05/24 -?-?-?-?-?-?-?-?-?-?-?-?- 37w 1d 194 lb 115/72 Negative -?-?-?-?-?-?-?-?-?-?-?-?- Negative 140 38 Cephalic 2 -?-?-?-?-?-?-?-?-?-?-?-?- 70 -1 kw- no vb/ lof/ having some regular cramping that comes and goes every 48 hours. good fm. GBS swab today. labor precautions given. planning TOLAC. 08/12/24 -?-?-?-?-?-?-?-?-?-?-?-?- 38w 1d 197 lb 6 oz 115/77 Nega tive -?-?-?-?-?-?-?-?-?-?-?-?- Negative 140 37 Cephalic 2 -?-?-?-?-?-?-?-?-?-?-?-?- SM- no vb lof go od fm no reuglar ctx ROS Constitutional Constitutional: Denies change in weight, fatigue, fever(s), headache(s), poor appetite or weakness Eyes Eyes: Denies blurry vision, change in vision, seeing flashes or spots in vision ENT HEENT: Denies dizziness, headache(s), loss taste/smell or sore throat Cardiovascular Cardiovascular: Denies chest pain, dizziness, dyspnea, irregular heart rhythm, leg edema, palpitations, rapid heart rate or vomiting Respiratory/Chest Respiratory/Chest: Denies chest tightness, cough, dyspnea or breast pain Gastrointestinal Gastrointestinal: Denies abdominal pain, anorexia, constipation, cramping, diarrhea, hemorrhoids, vomiting or weight changes Genitourinary Genitourinary: Denies dysuria, flank pain, genital lesions, genital pain, urinary frequency or urinary urgency Musculoskeletal Musculoskeletal: Denies back pain, difficulty walking, joint pain, limited range of motion, muscle cramps or numbness Integumentary Integumentary: Denies lesions or unusual bruising Neurologic Neurologic: Denies abnormal movements, abnormal speech, dizziness, numbness, seizure-like activity or syncope Psychiatric Psychiatric: Denies anxiety, behavioral changes, change in appetite, change in libido, cognitive impairment, confusion, depression, difficulty concentrating, hallucinations or suicidal thoughts Endocrine Endocrinology: Denies excessive sweating, polydipsia or polyuria Hematologic/Lymphatic Hematologic/Lymphatic: Denies easy bleeding, easy bruising or lymphadenopathy Allergic/Immunologic Allergic/Immunologic: Denies itchy eyes, lip swelling, seasonal rhinorrhea, rhinitis, throat swelling, tongue swelling, eczemia, wheezing or asthma Vital Signs Vital Signs Vital Signs: 08/16/24 07:35 08/16/24 07:35 08/16/24 07:35 Temperature Temperature Source Pulse Rate 83 Respiratory Rate Blood Pressure 121/79 H BP Systolic 121 BP Diastolic 79 Pulse Ox 97 08/16/24 07:35 08/16/24 07:35 08/16/24 07:35 Temperature 97.5 F L Temperature Source Temporal Pulse Rate Respiratory Rate 16 Blood Pressure BP Systolic BP Diastolic Pulse Ox 08/16/24 09:39 08/16/24 09:39 08/16/24 09:41 Temperature Temperature Source Pulse Rate 72 86 Respiratory Rate Blood Pressure BP Systolic BP Diastolic Pulse Ox 99 08/16/24 09:41 08/16/24 10:00 08/16/24 10:00 Temperature Temperature Source Pulse Rate 79 Respiratory Rate Blood Pressure 121/69 H BP Systolic 121 BP Diastolic 69 Pulse Ox 94 Weight Weight: 195 lb Body Mass Index (BMI) 31.4 Physical Exam Const alert, oriented x3, no apparent distress and healthy appearing General Appearance: cooperative; Negative for anxious HEENT normocephalic Face and Sinus: normal facial exam Eyes EOMs intact bilaterally and no scleral icterus General Eye: normal appearance of both eyes Neck full ROM and supple Lymph Lymphatic: no lymphadenopathy noted Chest Chest: abnormal inspection of the chest Resp normal respiratory effort Effort and Inspection: able to speak in complete sentences Cardio regular rate GI soft to palpation and non-tender Inspection: gravid Palpation: soft; Negative for tender external exam normal Back/Spine no CVA tenderness Extremity normal to inspection, full ROM and no clubbing, cyanosis or edema General Extremity: Negative for calf tenderness or edema Skin Lesions: no lesions Rashes: no rashes Psych mental status grossly normal Labs Labs Labs: Blood Type O POSITIVE Antibody Screen NEGATIVE Hct 37.8 % (37-47) Hgb 13.0 g/dL (12.0-15.0) Obstetrics Ultrasound Syphilis Total Ab Non-reactive Rubella IgG Antibody Reactive (Nonreactive) Hep Bs Antigen Non-Reactive (Nonreactive) Hepatitis C Antibody Non-Reactive (Nonreactive) Chlamydia DNA (CHUCKIE) Negative (Negative) N.gonorrhoeae DNA (CHUCKIE) Negative (Negative) HIV 1&2 Antibody Non-Reactive (Nonreactive) Glucose 1 Hr 50 gm 102 mg/dL (70-140) Assessment & Plan (1) Depression affecting : COMMENT: zoloft 50mg stable (2) History of recurrent miscarriages: (3) Supervision of high-risk : QUALIFIERS: Trimester: third trimester Qualified Code(s): O09.93 - Supervision of high risk , unspecified, third trimester COMMENT: PRR, , JACQUELIN 08/25/24, Dania Gary, Sree Cindy (4) : QUALIFIERS: Weeks of gestation: 38 weeks Qualified Code(s): Z3A.38 - 38 weeks gestation of COMMENT: GBS neg, declined genetic & carrier testing, nl anatomy (5) Hx successful (vaginal after ), currently : PLAN: Plan After discussing the patient's diagnosis and treatment plan options, patient wishes to proceed with a trial of labor. I have discussed with the patient the risks, benefits, and alternatives of the procedure which include but are not limited to risks of uterine rupture and compromise including . This was all discussed in the office setting prior to her arrival to L&D. Patient agrees to procedure and wishes to proceed. ACOG/uptodate references given for additional information regarding procedure.
[2024-08-16 10:03] LABS: Syphilis Antibodies Non-reactive
--- NOTE | 2024-08-16 10:05 | EX.PCM.OBVAG ---
Assessment & Plan (1) Active labor at term: (2) Depression affecting : COMMENT: zoloft 50mg stable (3) History of recurrent miscarriages: (4) Supervision of high-risk : QUALIFIERS: Trimester: third trimester Qualified Code(s): O09.93 - Supervision of high risk , unspecified, third trimester COMMENT: PRR, , JACQUELIN 08/25/24, boy Dania Penn, Sree Cindy (5) : QUALIFIERS: Weeks of gestation: 38 weeks Qualified Code(s): Z3A.38 - 38 weeks gestation of COMMENT: GBS neg, declined genetic & carrier testing, nl anatomy (6) Hx successful (vaginal after ), currently : Maternal Data Information JACQUELIN Calculator Estimated Delivery Date Method Current WG Current Estimate 08/25/24 LMP (Certain) 38w 5d Final JACQUELIN Source: LMP Gestational age: 38 weeks 5 days [place] Doctor Who Attended Delivery: Tia Tinoco Vaginal Delivery Maternal Presentation Maternal Presentation: Active Labor Type of Induction: Amniotomy Vaginal Delivery Information Procedure Performed: Spontaneous Vaginal Delivery Date of Procedure: 08/16/24 Pre-Procedure Diagnosis: active labor, @ 38 weeks 5 days. prior section, desires TOLAC Post-Procedure Diagnosis: active labor, @ 38 weeks 5 days. prior section, desires TOLAC Type of anesthesia: None Special Medications: IM pitocin Estimated Blood Loss: 200cc Time of Delivery: 09:53 Findings Description of procedure: Patient began pushing and delivered the head in the SHUKRI presentation. The head was delivered atraumatically . The anterior and posterior shoulders delivered without complication followed by the rest of the infant and the infant was placed on the maternal abdomen. Delayed cord clamping was employed for approximately 60 seconds. Cord was clamped and cut and gentle traction was applied to the cord and the placenta delivered spontaneously immediately following it was noted to be intact with three-vessel cord. The perineum and vagina were inspected and noted to have no laceration. EBL was 200cc. Patient and infant tolerated delivery well. Presentation: Vertex Amniotic Membrane Rupture Type: Artificial (immediately before delivery, meconium present ) Amniotic Fluid Description: Moderate meconium Placental Delivery Description: Spontaneous Placenta Disposition: [facility] Specimen collected: No Cord Vessel Description: 3 Vessels Cord Entanglement: None A Gender: Male (1 minute): 8 (5 minute): 8 Delayed Cord Clamping: Yes Remarketing Rep senior professional services consultant: No Post Vaginal Deli Medications given after delivery: IV Pitocin and IM Pitocin Episiotomy Description: None Laceration: None Complication Complications: No Multi Select Codes Urinary/Genital Urinary/Genital CPT Codes: 12666 Vaginal Delivery [facility]
--- NOTE | 2024-08-16 10:09 | DCINST_ITS ---
Discharge Instructions Diet Discharge Diet: No restrictions DC O2, CPAP, BIPAP needs Home O2 Discharge instructions: No Dressing / Incision Discharge Activity: Return to Normal Activity, May Not Drive (while taking narcotic pain medications.) and May Shower May resume sexual activity in: 4-6 weeks Dressing / Incision Call your doctor if your incision/area has: Continuous Slow Oozing, Sudden Increased Bleeding, Increased Pain/ Swelling, Increased Redness and Foul Smelling Discharge Follow Up Care Please Follow Up With: Love Goodman DO When: Call [phone] to make an appointment with your doctor in 6 weeks. If you had elevated blood pressure or 4th degree laceration, you will need to be seen in 2 weeks. Test Results: Test results from this visit will be discussed in further detail at your follow- up appointment, if applicable. Discharge Plan Admission Admit Date/Time: 08/16/24 08:55 Attending Provider: Love Goodman Primary Care Provider: Antonio Martins Discharge Orders/Prescriptions Prescriptions: No Action PNV-DHA 27 mg iron-1 mg -300 mg capsule 1 cap PO DAILY sertraline [Zoloft] 50 mg tablet 50 mg PO DAILY Qty: 90 3RF Referrals / Follow Up: Antonio Martins PA-C [Primary Care Provider] -
[2024-08-16] MEDS: Oxytocin 15 Units/NS 250ml 15 UNITS/250 ML IV.SOLN 83 UNITS IV (10:25)
[2024-08-16] MEDS: Ibuprofen 600 MG Tablet PO ×2 (11:16→18:40)
[2024-08-16] MEDS: Sertraline 50 MG Tablet PO (18:37)
[2024-08-17] VITALS (8 sets, daily range): BP systolic 95–118; BP diastolic 54–67; PULSE 63–80; RESP 16; TEMP 36.4–36.7; O2SAT 92–99
--- NOTE | 2024-08-17 07:40 | PCM.PN.BLA ---
Physical Exam Const alert, oriented x3 and no apparent distress Neck full ROM Resp normal respiratory effort, normal air movement and no retractions Effort and Inspection: able to speak in complete sentences and symmetric chest movement GI soft to palpation Bladder / Kidney Exam: bladder normal to palpation Uterus Palpation: uterus fundus firm Extremity normal to inspection and full ROM Psych mental status grossly normal, thought process normal and cooperative Assessment & Plan Assessment/Plan (1) Active labor at term: (2) Depression affecting : (3) History of recurrent miscarriages: (4) Supervision of high-risk : QUALIFIERS: Trimester: third trimester Qualified Code(s): O09.93 - Supervision of high risk , unspecified, third trimester (5) : QUALIFIERS: Weeks of gestation: 38 weeks Qualified Code(s): Z3A.38 - 38 weeks gestation of (6) Hx successful (vaginal after ), currently : (7) Vaginal delivery: PLAN: s/p PPD # 1 1. routine post delivery care 2. breast feeding- support given 3. rh positive 4. rubella immune 5. Discharge home Multi Select Codes Urinary/Genital Urinary/Genital CPT Codes: No Charge
[2024-08-17] MEDS: Ibuprofen 600 MG Tablet PO (09:13)
--- NOTE | 2024-08-17 13:32 | CASEMGMT ---
Social Work Assessment Labor and Delivery Unit Patient Address: [address] [place] [address] [place] [address] Phone number: [phone] Date of Referral: 08/16/24 Time of Referral:? 144 Referred By: Dr. Goodman Date of Intervention: ?08/17/24? Time of Intervention:? 1030 Reason for Referral:? hx of depression, on zoloft Sw completed chart review and acknowledges social work consult due to maternal mental health history. Sw presented to bedside and introduced self to mother of baby (MOB- Kimi) and father of baby (FOB- Cindy). Sw explained reason for sw involvement and completed psychosocial assessment. MOB and sw met privately towards beginning of assessment and then FOB returned to room. History obtained from: medical records, MOB?and FOB. Household composition: Currently residing in the family home is DARNELL ROBBINS thier three older children: Gustavo (5), Dania (3) and Sree (1). baby to be added to family residence when ready for discharge. Parents deny any concerns with housing, reporting that it is safe and secure. Patient's parent/guardian status:? ?MOB states that she and FOB met at a L2C group function and have been together for 7 years. MOB denies any concerns of domestic violence or intimate partner violence. Medical History: ?ITZEL is 29 year old female who is 7, para 3- now 4 following labor and delivery of . ITZEL received routine care during with Sharon. ITZEL presented to hospital in active labor and delivered baby via successful on 08/16/24. Baby boy, named Bulmaro Blanco, was born weighing 8lb 11oz with apgars of 8 and 8 at one and five minutes of life, respectfully. ITZEL is and states that it is going well. Baby will be followed by Dr. Martins for pediatrics. Educational Status:?Both parents completed the 8th grade as is customary in their culture. Parents deny problems with reading, learning or comprehension. Financial Status: DARNELL works on the [employer]. 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 Infant Supplies: Parents have all necessary baby supplies, including: car seat, safe sleep space, clothes, diapers and wipes. Childcare/Caregiver(s):? MOB will be the primary caregiver to baby. Transportation:?? Parents do not drive, but rely on a utility worker driver to get them places that are too far for horse and buggy. Programs/Agencies Involved: ??Parents are not connected to any community agencies that assist them financially. ? Children Services/Legal Issues:?No prior involvement with children services, no issues or concerns warranting referral to be made at this time. ?? Behavioral Health Issues: ??Mental Health History:?DARNELL denies mental history. ITZEL disclosed that she did experience depression after her last baby was born. MOB states that during that time she had thoughts of not wanting to be here any more. When asking more specific questions, ITZEL states that she never had thoughts of hurting herself, a plan to hurt herself or thoughts of hurting the baby. MOB states that she would start to feel overstimulated and would get angry. FOB states that he would be able to recognize if ITZEL were to struggle, but does not always feel confident in how to help her. ITZEL states that DARNELL does help with the other children when she starts to feel overwhelmed or overstimulated. ITZEL completed [place] depression scale, her score was a 4. Sw provided education and support. ITZEL states that she is prescribed zoloft, and can tell a big difference with the medication. ITZEL states that she is hopeful that since she is on medication during this period that she will not experience any symptoms. ?? Substance Use History: Parents deny substance use prior to and during . ?? Family History:??Parents deny family history of substance use, addiction or significant mental health diagnoses. ??? Drug Screens: No drug screens observed during chart review. Family/Social Stressors:?Parents deny any family issues, concerns or stressors . Support Systems: ITZEL identifies that DARNELL is her biggest support person along with both sets of their parents. Depression/Shaken Baby/Safe Sleeping: Sw educated parents on signs and symptoms of baby blues and mood and anxiety disorders to be mindful of during this period. Parents state that they are able to better recognize the struggles that mom experienced after talking to MOB's PCP who is her prescriber. MOB's Cal[place] score was a 4, indicating mild threshold for anxiety or depression. Sw educated parents on shaken baby prevention and ABCs of safe sleep, parents express understanding. ASSESSMENT:? MOB and baby admitted following labor and delivery of . MOB was open to talking about her mental health following her last delivery when she struggled the most. ITZEL states that she had lymes disease in between her second and third children, and then her daughter was still really little when her son was born, and all of this was a lot on her body and her mental health. MOB talked to her PCP at that time and got prescribed zoloft to help manage her mental health symptoms. MOB was observed to be attentive to baby and cared for him lovingly and appropriately. MOB states that she is always happy and content after her children are born, but can notice a change around week 6 . FOB encouraged to assist MOB and recognize when she needs help. FOB verbalized willingness to help MOB. Parents have obtained all necessary baby supplies and have natural supports in place. PLAN:?? No other services requested or indicated. MOB and baby to be discharged when medically ready. Parents were provided literature regarding: signs and symptoms of baby blues and mood and anxiety disorders, Help Me Grow, shaken baby prevention, ABCs of safe sleep and a list of county resources that are available for them should any needs present themselves. Jun Duke, MEDIATOR, DAMASCENER
== END 2024-08-17 13:25 | disposition home or self-care (01) | DRG 807 ==
LOC: WPOUT 09:01 → WP 10:10
PROVIDERS: Admitting Provider Obstetrics & Gynecology; PCP Physician Assistant; Referring Provider Obstetrics & Gynecology; Visit Provider Obstetrics & Gynecology
DX: O34.219 Maternal care for unspecified type scar from previous cesarean delivery (principal); Z37.0 Single live birth; O26.23 Pregnancy care for patient with recurrent pregnancy loss, third trimester; F32.A Depression, unspecified; O99.344 Other mental disorders complicating childbirth; Z3A.38 38 weeks gestation of pregnancy; O77.0 Labor and delivery complicated by meconium in amniotic fluid
CPT/HCPCS: 59025; 59050; 85025; 86780; 86850; 86900; 86901; 99221; G0378; J2405

== ENCOUNTER → 2024-09-27 | Outpatient (CLI) | payer OTHER, SELFPAY ==
[2024-10-01 12:45] LABS: HPV Reflexed? NOT INDICATED
== END | disposition home or self-care (01) ==
LOC: LABSPEC 11:03
PROVIDERS: PCP Physician Assistant; Referring Provider Obstetrics & Gynecology; Visit Provider Obstetrics & Gynecology
DX: Z12.4 Encounter for screening for malignant neoplasm of cervix (principal)
CPT/HCPCS: 88175; G0145